=== PATIENT | female | born 1940 | race Caucasian/White ===

== ENCOUNTER 2017-01-19 21:38 | Emergency (ER) | payer OTHER ==
[~2017-01-19] VITALS: Ht 149.9 cm; Wt 49.9 kg
[2017-01-19] MEDS ORDERED: SODIUM CHLORIDE 0.9% 1,000 ML IV ONE (22:00)
[2017-01-19 22:23] LABS: Basophils # (auto) 0 uL; Basophils % (auto) 0.5 % (0.0-2.0); Eosinophils # (auto) 0.1 uL; Eosinophils % (auto) 1.1 % (0.0-7.0); Hematocrit 37.9 % (36.0-46.0); Hemoglobin 12.9 g/dL (12.2-16.2); Lymphocytes # (auto) 1.8 uL; Lymphocytes % (auto) 33.9 % (10.0-50.0); Mean Corpuscular Hemoglobin 32.9 pg (28.0-32.0); Mean Corpuscular Volume 96.6 fL (80.0-100.0); Mean Platelet Volume 8.4 fL (7.4-10.4); Monocytes # (auto) 0.3 uL; Monocytes % (auto) 6.1 % (0.0-12.0); Neutrophils # (auto) 3.2 uL; Neutrophils % (auto) 58.4 % (37.0-80.0); Platelet Count (auto) 279 10^3/uL (140-450); Red Cell Distribution Width 13.5 % (11.6-16.0); White Blood Cell 5.4 10^3/uL (4.4-10.8)
[2017-01-19 22:27] LABS: Urine RBC None Seen /hpf (0 - 4)
[2017-01-19 22:37] LABS: Urine Bilirubin Negative (Negative); Urine Blood Negative /uL (Negative); Urine Color Yellow (Yellow); Urine Glucose Normal (Normal); Urine Ketone Negative (Negative); Urine Nitrite Negative (Negative); Urine Squamous Epithelial Cell FEW /hpf (<5); Urine Urobilinogen Normal (Negative)
[2017-01-19 22:41] LABS: INR 0.95 (0.9-1.15); Partial Thromboplastin Time 27.6 sec (22.64-33.71); Prothrombin Time 10.3 sec (9.37-12.3)
[2017-01-19 22:46] LABS: Albumin 3.8 g/dL (3.4-5.0); Anion Gap 10 (5-15); Aspartate Aminotransferase 40 U/L (15-37); BUN/Creatinine Ratio 12.3; Blood Urea Nitrogen 9 mg/dL (7-18); Calcium 8.7 mg/dL (8.5-10.1); Carbon Dioxide 26 mmol/L (21-32); Chloride 94 mmol/L (98-107); GFR African American 100 mL/min; GFR Non-African American 83 mL/min; Glucose 85 mg/dL (74-106); Magnesium 2.2 mg/dL (1.6-2.6); Potassium 4.2 mmol/L (3.5-5.1); Sodium 130 mmol/L (136-145)
[2017-01-19 23:00] LABS: Alkaline Phosphatase 62 U/L (45-117); Bilirubin, Total 0.5 mg/dL (0.2-1.0); Total Protein 7.2 g/dL (6.4-8.2)
[2017-01-20 00:40] VITALS: BP 107/63
== END 2017-01-20 00:35 | disposition home or self-care (01) ==
LOC: ER 21:50
DX: F03.90 Unspecified dementia, unspecified severity, without behavioral disturbance, psychotic disturbance, mood disturbance, and anxiety (principal); F10.129 Alcohol abuse with intoxication, unspecified; Y90.9 Presence of alcohol in blood, level not specified; I10 Essential (primary) hypertension; R51 Headache; W18.11XA Fall from or off toilet without subsequent striking against object, initial encounter; Y93.89 Activity, other specified; Y99.8 Other external cause status; Y92.89 Other specified places as the place of occurrence of the external cause
CPT/HCPCS: 36415; 70450; 71010; 80053; 80307; 80320; 81001; 83605; 83735; 84484; 85025; 85610; 85730; 87086; 93005; 96360; 99285; J7030

== ENCOUNTER 2020-03-29 20:49 | Inpatient (IN) | payer OTHER ==
[~2020-03-29] VITALS: Ht 152.4 cm; Wt 47.3 kg
[2020-03-29] MEDS ORDERED: SODIUM CHLORIDE 0.9% 1,000 ML IV ONE ×2 (21:15→23:15)
[2020-03-29 22:20] LABS: Basophils # (auto) 0 10 ^3/uL (0-0.2); Basophils % (auto) 0.3 % (0.0-2.0); Eosinophils # (auto) 0.1 10 ^3/uL (0-0.8); Hematocrit 32.1 % (36.0-46.0); Hemoglobin 10.6 g/dL (12.2-16.2); Lymphocytes % (auto) 13.5 % (10.0-50.0); Mean Corpuscular Hemoglobin 30.2 pg (28.0-32.0); Mean Corpuscular Volume 91.7 fL (80.0-100.0); Monocytes # (auto) 0.7 10 ^3/uL (0-1.3); Monocytes % (auto) 10.3 % (0.0-12.0); Neutrophils # (auto) 5.4 10 ^3/uL (1.6-8.6); Neutrophils % (auto) 74.9 % (37.0-80.0); Platelet Count (auto) 164 10^3/uL (140-450); Red Cell Distribution Width 13.9 % (11.8-14.3); White Blood Cell 7.2 10^3/uL (4.4-10.8)
[2020-03-29 22:38] LABS: Albumin 2.9 g/dL (3.4-5.0); Anion Gap 5 (5-15); Blood Urea Nitrogen 46 mg/dL (7-18); Carbon Dioxide 22 mmol/L (21-32); Chloride 110 mmol/L (98-107); Glucose 78 mg/dL (74-106); Potassium 3.3 mmol/L (3.5-5.1); Sodium 137 mmol/L (136-145)
[2020-03-29 22:42] LABS: Alanine Aminotransferase 10 U/L (13-56); Alkaline Phosphatase 55 U/L (45-117); Aspartate Aminotransferase 13 U/L (15-37); BUN/Creatinine Ratio 18.5; Bilirubin, Total 0.4 mg/dL (0.2-1.0); GFR African American 24 mL/min; GFR Non-African American 20 mL/min; Total Protein 6.1 g/dL (6.4-8.2)
[2020-03-29 22:54] LABS: Urine Amorphous Crystal FEW /hpf (None Seen); Urine Bacteria FEW /hpf (None Seen); Urine Blood Negative /uL (Negative); Urine Hyaline Cast MOD /lpf (0 - 2); Urine Specific Gravity 1.009 (1.001-1.035); Urine WBC 2 /hpf (0 - 5)
[2020-03-29] MEDS ORDERED: cefTRIAXone 1GM/50ML D5W 50 ML IV ONE (23:15)
[2020-03-30] MEDS ORDERED: POTASSIUM CHL 20 Meq TABLET PO ONE (03:15)
[2020-03-30] MEDS ORDERED: metroNIDAZOLE 500MG/100ML 100 ML IV ONE (03:15)
[2020-03-30] MEDS ORDERED: DOCUSATE SOD 100 MG CAP PO PRN (04:45)
[2020-03-30] MEDS ORDERED: SODIUM CHLORIDE 0.9% 2,000 ML IV ONE (04:45)
[2020-03-30] MEDS ORDERED: ONDANSETRON HCL 4 MG/2 ML VIAL IV PRN (04:45)
[2020-03-30] MEDS ORDERED: ACETAMINOPHEN 325 MG TAB PO PRN (04:45)
[2020-03-30 05:23] LABS: Basophils # (auto) 0 10 ^3/uL (0-0.2); Eosinophils # (auto) 0.1 10 ^3/uL (0-0.8); Hematocrit 24.9 % (36.0-46.0); Hemoglobin 8.1 g/dL (12.2-16.2); Lymphocytes # (auto) 1.2 10 ^3/uL (0.4-5.4); Neutrophils # (auto) 3.2 10 ^3/uL (1.6-8.6)
[2020-03-30 05:25] LABS: Basophils % (auto) 0.2 % (0.0-2.0); Eosinophils % (auto) 1.3 % (0.0-7.0); Lymphocytes % (auto) 23.5 % (10.0-50.0); Mean Corpuscular Hemoglobin 30.1 pg (28.0-32.0); Mean Corpuscular Hgb Conc. 32.6 g/dL (32.0-36.0); Mean Corpuscular Volume 92.3 fL (80.0-100.0); Monocytes # (auto) 0.6 10 ^3/uL (0-1.3); Monocytes % (auto) 11.4 % (0.0-12.0); Neutrophils % (auto) 63.6 % (37.0-80.0); Nucleated Red Blood Cells % 0.1 %; Platelet Count (auto) 131 10^3/uL (140-450); Red Cell Distribution Width 13.6 % (11.8-14.3)
[2020-03-30] MEDS: metroNIDAZOLE 500MG/100ML 100 ML IV SCH ×3 (06:00→18:55)
[2020-03-30] MEDS: SODIUM CHLORIDE 0.9% 1,000 ML IV SCH ×2 (06:00→14:47)
[2020-03-30 06:02] VITALS: BP 112/61
--- NOTE | 2020-03-30 06:02 | NUR ---
MS admit from ER Patient admitted to Med Surg. Patient oriented to primary RN, unit, room, bed, and unit policies regarding patient care and visiting hours. Patient weighed by bedscale and encouraged to call if they need something. All questions and concerns addressed, patient verbalized understanding. Safety precautions in place bed is in lowest position and locked, bed rails 2x.
[2020-03-30 06:10] LABS: Anion Gap 5 (5-15); Blood Urea Nitrogen 27 mg/dL (7-18); Carbon Dioxide 15 mmol/L (21-32); Chloride 127 mmol/L (98-107); Glucose 71 mg/dL (74-106); Sodium 147 mmol/L (136-145)
[2020-03-30 06:13] LABS: BUN/Creatinine Ratio 24.3; Cholesterol 64 mg/dL (< 200); GFR African American 61 mL/min; GFR Non-African American 51 mL/min; HDL Cholesterol 20 mg/dL (40-59); LDL Cholesterol 40 mg/dL (< 100); Triglycerides 60 mg/dL (< 150)
[2020-03-30 06:31] LABS: Calcium < 5.0 mg/dL (8.5-10.1)
[2020-03-30 06:34] LABS: Potassium 2.3 mmol/L (3.5-5.1)
--- NOTE | 2020-03-30 06:40 | NUR ---
Critical Lab/ Paged Hospitalist Informed hospitalist of critical lab for Potassium and Calcium. New orders received to replace Potassium. Per hospitalist, Calcium is within normal range, no need for replacement. Will continue to monitor patient Q1 and PRN. Orders read back and verified.
[2020-03-30] MEDS: POTASSIUM CHL 20MEQ/100ML 100 ML IV SCH ×4 (07:00→16:30)
--- NOTE | 2020-03-30 07:15 | NUR ---
End of Shift Note Endorsed care to dayshift RN. Made RN aware of critical labs and new orders. At this time patient has no s/s of distress or SOB.
--- NOTE | 2020-03-30 07:45 | NUR ---
Opening Note Received report from shift production supervisor RN. Patient is awake. alert and oriented to name and date of only, at this time. Patient is on room air, respirations even and unlabored. Chung catheter in place, patent and draining. Bed in low and locked position, call light within reach. Bed alarm on for safety. Will continue to monitor Q1 hour and PRN.
--- NOTE | 2020-03-30 08:25 | NUR ---
Bedside commode Patient assisted to bedside commode. Patient had loose, very dark colored bowel movement. Patient cleaned and assisted back to bed. Bed alarm on for safety. Will continue to monitor Q1 hour and PRN.
[2020-03-30 09:00] VITALS: BP 105/55
--- NOTE | 2020-03-30 10:55 | NUR ---
Dr. Devorah Jara at bedside MD discussing plan of care with patient and this RN. New orders received. Will continue to monitor Q1 hour and PRN.
[2020-03-30] MEDS: cefTRIAXone 1GM/50ML D5W 50 ML IV SCH (14:42)
--- NOTE | 2020-03-30 14:42 | NUR ---
Chung catheter pulled out This RN found patient had pulled out Chung catheter. Patient states "I don't know what happened." Catheter tubing on bed, drainage bag on floor. Area assessed. Patient denies pain or discomfort at this time. Will insert new catheter. Will continue to monitor Q1 hour and PRN.
--- NOTE | 2020-03-30 14:45 | NUR ---
Sitter at bedside for safety
--- NOTE | 2020-03-30 16:20 | NUR ---
Dr. Gilberto Estrada at bedside Discussing plan of care with patient and this RN. New orders received. Will implement new orders and continue to monitor Q1 hour and PRN.
--- NOTE | 2020-03-30 16:25 | NUR ---
Stool sample collected and sent to lab
--- NOTE | 2020-03-30 16:30 | NUR ---
Unable to obtain Covid swab Unable to obtain Covid swab at this time, patient is agitated and refusing. Patient educated on reason for testing, patient continues to refuse. Will attempt again later. Will continue to monitor Q1 hour and PRN.
--- NOTE | 2020-03-30 18:59 | NUR ---
Closing Note Report given to casino shift manager RN. No signs or symptoms of distress noted at this time.
[2020-03-30 22:00] VITALS: BP 94/55
[2020-03-31] MEDS: SODIUM CHLORIDE 0.9% 1,000 ML IV SCH ×3 (00:45→20:45)
[2020-03-31 05:00] VITALS: BP 112/68
--- NOTE | 2020-03-31 05:10 | NUR ---
IV insertion IV access obtained, via clean sterile technique by inserting 22 gauge catheter at right forearm after 1 attempt. IV secured properly. No trauma to site. Patient tolerated procedure well. IV removal IV DC'd at left forearm, with sterile technique, catheter fully intact. Pressure dressing applied to site. Patient tolerated procedure well.
[2020-03-31] MEDS: metroNIDAZOLE 500MG/100ML 100 ML IV SCH ×4 (05:52→22:00)
--- NOTE | 2020-03-31 06:00 | NUR ---
COVID SWAB OBTAINED AND WALKED TO LAB. PATIENT TOLERATED WELL.
[2020-03-31 06:53] LABS: Calcium 7.2 mg/dL (8.5-10.1); Potassium 4.5 mmol/L (3.5-5.1)
[2020-03-31 06:57] LABS: BUN/Creatinine Ratio 14.5; Bilirubin, Total 0.4 mg/dL (0.2-1.0); Total Protein 6.2 g/dL (6.4-8.2)
--- NOTE | 2020-03-31 07:13 | NUR ---
End of Shift Note Endorsed care to dayshift RN. At this time patient has no s/s of distress or SOB.
--- NOTE | 2020-03-31 07:56 | NUR ---
Opening Shift Note Assumed care of patient, awake and alert. No S/S of distress/SOB or pain. Instructed on POC and to call for assist PRN, will continue to monitor for changes Q1hr and PRN.
--- NOTE | 2020-03-31 08:00 | NUR ---
large liquid loose bm noted
[2020-03-31 09:00] VITALS: BP 100/48
[2020-03-31] MEDS: cefTRIAXone 1GM/50ML D5W 50 ML IV SCH (09:21)
--- NOTE | 2020-03-31 09:39 | NUR ---
loose bm noted
--- NOTE | 2020-03-31 11:04 | NUR ---
md jose rounded on patient, updated that pt covid test was collected this am, pt asked if she can be "freed from this iv" iv fluids increased explained to pt fluids are necessary, pt wants to eat, per keep npo
--- NOTE | 2020-03-31 13:50 | NUR ---
loos bm noted
[2020-03-31 15:10] VITALS: BP 116/55
--- NOTE | 2020-03-31 16:22 | NUR ---
micro result called into nurse charge rn made aware of need for private room
--- NOTE | 2020-03-31 16:56 | NUR ---
made n jasbir aware of c diff result new orders made
--- NOTE | 2020-03-31 17:23 | NUR ---
pt moved to room 283 for isolation, noted pt pulled out peripheral iv, pt is refusing iv insertion at this time "leave me alone im cold and hungry" risk and benefit explained pt "leave me alone"
[2020-03-31] MEDS: VANCOMYCIN HCL 125MG/5ML ORAL SOL PO SCH ×2 (17:25→22:00)
--- NOTE | 2020-03-31 17:49 | NUR ---
pt provided dinner tray and hot coffee, asked to insert iv, per pt "im cold get out of here do that later"
--- NOTE | 2020-03-31 18:36 | NUR ---
attmepted x2 to place iv, pt "leave me alone thats enough"
--- NOTE | 2020-03-31 19:30 | NUR ---
Opening Shift Note Assumed care of patient, awake and alert, but confused. When this nurse attempts to re-orient her to place, pt agrees with RN; but then she speaks again of the dogs and cats still being out on the porch and of her son needing to come home and take care of them. Pt thinks people are "out sitting on the curb looking up into her windows. Pt's room is on 2nd floor of building. No S/S of resp. distress/SOB or pain. Instructed on POC and to call for assist PRN, will continue to monitor for changes Q1hr and PRN. Also sitter in room with pt 2/2 confusion and pt's dcing IV and attempting to dc F/C, though the latter was prevented. Currently pt has no IV access and does not want it.
--- NOTE | 2020-03-31 20:50 | NUR ---
Spoke with Babar Turner, pt's son who is the POA. Pt gave permission for her son to be Next of Kin. Spoke with Babar answering questions about his mom's current orientation status and that the reason for her room change was 2/2 C diff infection. Babar states he will be calling [facility] tomorrow to begin proceedings to have pt placed in facility as he has been caregiver in his home. Babar thanked this RN for answering questions and getting NOK established. Encouraged him to call as he needs.
[2020-03-31 22:00] VITALS: BP 134/57
--- NOTE | 2020-03-31 22:40 | NUR ---
Attempt to restart PIV to L post hand with 22 g cath unsuccessful. Attempt to start PIV to R post forearm unsuccessful. Pt tianna. activity well, but stating need to wait until in the morning and "we can start it while we have coffee." This RN requesting another RN to start and 'vein finder' was requested. Vein finder currently in Covid unit. Charge RNs aware and informed this RN that they will get it later and let this RN know when it is ready.
[2020-04-01 05:00] VITALS: BP_SYST 123; BP_SYST 130; BP_DIAS 61; BP_DIAS 63
[2020-04-01] MEDS: VANCOMYCIN HCL 125MG/5ML ORAL SOL PO SCH ×4 (06:00→21:35)
[2020-04-01] MEDS: metroNIDAZOLE 500MG/100ML 100 ML IV SCH ×3 (06:00→21:33)
[2020-04-01 06:24] LABS: Calcium 7.4 mg/dL (8.5-10.1); Potassium 3.8 mmol/L (3.5-5.1)
[2020-04-01 06:30] LABS: BUN/Creatinine Ratio 9.4; Bilirubin, Total 0.5 mg/dL (0.2-1.0); Total Protein 6.1 g/dL (6.4-8.2)
[2020-04-01] MEDS: SODIUM CHLORIDE 0.9% 1,000 ML IV SCH ×3 (06:45→21:36)
[2020-04-01 08:00] VITALS: BP 113/46
--- NOTE | 2020-04-01 08:00 | NUR ---
RECEIVED PATIENT ALERT AND ORIENTED X2, NOT IN DISTRESS, CLEAR LS IN BILATERAL LUNG LOBES, RR=18, DEEP BREATHING AND COUGHING ENCOURAGED, HEART R=78, DENIED CHEST PAIN AND SOB, ABDOMEN SOFT WITH ACTIVE BS, LAST BM THIS MORNING REPORTED, WILKS CATH IN PLACE AND PATENT, DRAINING CLEAR YELLOW URINE, SKIN INTACT WARM TO TOUCH, RADIAL AND PEDAL PULSES PALPABLE, DENIED PAIN, RESTING ON BED, HEAD OF BED ELEVATED, BED ON LOW POSITION, RAILS UP X2, CALL LIGHT ON REACH, SITTER AT BED SIDE, WILL CONTINUE MONITORING.
--- NOTE | 2020-04-01 08:30 | NUR ---
NO IV ACCESS, PROVIDED NEW IV ACCESS INSERTION, PATIENT REFUSED X2, DR. GUANAKO Fairchild WAS CALLED TO BE NOTIFIED, WAITING FOR CALL BACK, SITTER AT BED SIDE, WILL CONTINUE MONITORING.
--- NOTE | 2020-04-01 11:35 | NUR ---
PENDING VANCOMYCIN IV AT 1200 PM, NO IV ACCESS, DR. GUANAKO Fairchild NOTIFIED, PENDING MIDLINE INSERTION ORDERED, PICC LINE NURSE CONTACTED FOR FOLLOW UP INSERTION TIME, WILL CONTINUE MONITORING,
[2020-04-01 12:58] VITALS: BP 126/52
--- NOTE | 2020-04-01 14:39 | NUR ---
Pt is an alert to self female that has been residing at home with her son, Babar. Babar has been patient's primary caregiver for the last five years. Babar states pt was on service with hospice prior to admission. Pt had been on with [facility] but he'd changed to [facility] hospice due to [facility] only seeing the pt twice a week. He is wanting to resume service with [facility] upon discharge. Will followup with provider for a resumption order and contact [facility] regarding setting pt up to return home. Addendum: 04/01/20 at 1444 by ELKIN DIXON Amended: Links added.
--- NOTE | 2020-04-01 19:22 | NUR ---
REPORT WAS GIVEN TO THE TORCH STRAIGHTENER AND HEATER RN.
[2020-04-01 22:00] VITALS: BP 119/59
[2020-04-02 05:00] VITALS: BP 124/50
[2020-04-02] MEDS: metroNIDAZOLE 500MG/100ML 100 ML IV SCH ×3 (05:29→21:36)
[2020-04-02] MEDS: VANCOMYCIN HCL 125MG/5ML ORAL SOL PO SCH ×4 (05:30→21:36)
[2020-04-02 06:29] LABS: Albumin 2.7 g/dL (3.4-5.0); Calcium 7.7 mg/dL (8.5-10.1); Potassium 3.8 mmol/L (3.5-5.1)
[2020-04-02 06:34] LABS: BUN/Creatinine Ratio 8.2; Bilirubin, Total 0.4 mg/dL (0.2-1.0); Total Protein 5.7 g/dL (6.4-8.2)
--- NOTE | 2020-04-02 07:58 | NUR ---
RECEIVED PATIENT ALERT AND ORIENTED X1, NOT IN DISTRESS, CLEAR LS IN BILATERAL LUNG LOBES, RR=18, SAT=96%, DEEP BREATHING AND COUGHING ENCOURAGED, HEART R=64, DENIED CHEST PAIN AND SOB, ABDOMEN SOFT WITH ACTIVE BS, LAST BM THIS MORNING REPORTED, WILKS CATH IN PLACE AND PATENT, DRAINING CLEAR YELLOW URINE, SKIN INTACT WARM TO TOUCH, RADIAL AND PEDAL PULSES PALPABLE, DENIED PAIN, RESTING ON BED, HEAD OF BED ELEVATED, BED ON LOW POSITION, RAILS UP X2, CALL LIGHT ON REACH, SITTER AT BED SIDE, WILL CONTINUE MONITORING.
[2020-04-02 09:00] VITALS: BP 113/41
--- NOTE | 2020-04-02 12:10 | NUR ---
Nutrition Assessment Notes please see attached link fro complete assessment Est energy needs BW 47 [id number] kcal (25-30 kcal/kg BW), Est protein needs: 47-56g (1.0-1.2 g/kg BW). Will reassess prn. Addendum: 04/02/20 at [address] Amended: Links added.
[2020-04-02] MEDS: CHOLESTYRAMINE 4 GM POWDER GT SCH (12:18)
[2020-04-02] MEDS: SODIUM CHLORIDE 0.9% 1,000 ML IV SCH ×2 (12:19→22:45)
[2020-04-02 13:00] VITALS: BP 125/50
--- NOTE | 2020-04-02 18:21 | NUR ---
Sitting on bed and eating dinner, tolerating well, urine sample sent top the lab as ordered, sitter at bed side, will continue monitoring.
[2020-04-02 18:30] VITALS: BP 119/52
--- NOTE | 2020-04-02 19:25 | NUR ---
REPORT WAS GIVEN TO THE WOOD TYPE CUTTER RN.
[2020-04-03 05:00] VITALS: BP 115/52
[2020-04-03 05:11] VITALS: BP 124/53
[2020-04-03] MEDS: VANCOMYCIN HCL 125MG/5ML ORAL SOL PO SCH ×4 (06:00→21:52)
[2020-04-03] MEDS: SODIUM CHLORIDE 0.9% 1,000 ML IV SCH ×2 (06:00→18:45)
[2020-04-03] MEDS: metroNIDAZOLE 500MG/100ML 100 ML IV SCH ×3 (06:00→21:52)
--- NOTE | 2020-04-03 07:45 | NUR ---
Opening Note Received report from retail shift manager RN. Patient is resting in bed, no signs or symptoms of distress noted at this time. Patient is on room air, respirations even and unlabored. Patient denies pain at this time. Reviewed plan of care. Bed in low and locked position, call light within reach. Sitter at bedside for safety. Will continue to monitor Q1 hour and PRN.
[2020-04-03 09:00] VITALS: BP 125/52
[2020-04-03] MEDS: CHOLESTYRAMINE 4 GM POWDER GT SCH (10:41)
[2020-04-03 13:00] VITALS: BP 113/54
--- NOTE | 2020-04-03 16:00 | NUR ---
PT REQUESTED THAT P.T. EVALUATION BE DONE TOMORROW.
[2020-04-03 17:00] VITALS: BP 137/64
--- NOTE | 2020-04-03 19:02 | NUR ---
Closing Note Report given to electronic prepress technician RN. No signs or symptoms of distress noted at this time. Sitter at bedside for safety.
--- NOTE | 2020-04-03 19:53 | NUR ---
1899. REPORT OBTAINED ON PATIENT. 1929. PATIENT SEEN. AWAKE AND ALERT. LYING QUIET ON HER BED. CONFUSED BUT COOPERATIVE WITH CARE. SITTER AT THE BEDSIDE. ON CONTACT ISOLATION FOR C DIFF INFECTION. IV FLUID INFUSION. IV SITE CLEAR AND DRY.
[2020-04-03 22:00] VITALS: BP 120/61
[2020-04-03] MEDS ORDERED: TEMAZEPAM 15 MG CAP PO ONE (23:00)
--- NOTE | 2020-04-03 23:08 | NUR ---
2200. WILKS CATHETER DISCONTINUED. PATIENT VERBALIZE HER WISH TO VOID FREELY ON THE BEDSIDE COMMODE PROVIDED. SHE THREATENED TO PULL IT OUT ON HER OWN IF IT WAS NOT REMOVED. WE ARE CONVINCED THE WILKS CATHETER IS NO LONGER NEEDED. PATIENT IS EXPECTED TO VOID IN 6 HOURS. CATHETER WAS INTACT ON REMOVAL. REMOVAL WITNESS BY NURSE HADOOP SOFTWARE ENGINEER SITTER AT THE BEDSIDE.
--- NOTE | 2020-04-04 00:16 | NUR ---
PATIENT HAS VOIDED ONCE SINCE REMOVAL OF CATHETER. URINE WAS CLEAR.
--- NOTE | 2020-04-04 01:21 | NUR ---
PATIENT VOIDED AGAIN AND HAD BOWEL MOVEMENT. SHE WAS CLEANED. ALL LINENS CHANGED. PATIENT ASSISTED TO BED. DENIED PAIN.
[2020-04-04] MEDS: SODIUM CHLORIDE 0.9% 1,000 ML IV SCH ×2 (04:45→14:45)
[2020-04-04 05:00] VITALS: BP 111/55
[2020-04-04] MEDS: VANCOMYCIN HCL 125MG/5ML ORAL SOL PO SCH ×2 (05:44→12:49)
[2020-04-04] MEDS: metroNIDAZOLE 500MG/100ML 100 ML IV SCH ×2 (05:44→14:50)
[2020-04-04 08:57] VITALS: BP 147/68
--- NOTE | 2020-04-04 11:10 | NUR ---
HOSPITALIST ROUNDED Dr. Jara rounded on patient, he spoke with patient's son on phone regarding her discharge.
[2020-04-04] MEDS: CHOLESTYRAMINE 4 GM POWDER GT SCH (11:13)
[2020-04-04 13:00] VITALS: BP 145/75
[2020-04-04 14:26] VITALS: BP 145/75
--- NOTE | 2020-04-04 14:45 | NUR ---
Phone call to son Notified Babar of patient's discharge and that she will be picked up at 1530 by hospice.
--- NOTE | 2020-04-04 14:55 | NUR ---
Phone call Received phone call from patient's sister regarding discharge. She had questions regarding patient's diarrhea and her being discharge. Notify her that patient is on treatment for the infection and that MD spoke with son regarding unable to keep patient in hospital just because of diarrhea. She verbalized understanding.
--- NOTE | 2020-04-04 16:00 | NUR ---
Discharge instructions given as ordered. Encourage to follow up with PMD as instructed. All questions and concerns addressed. Patient verbalized understanding. Medication reconciliation form completed and copy given to patient. IV removed with catheter intact and pressure dressing applied. Patient taken to vehicle via gurney all personal belongings. No distress noted at time of departure.
== END 2020-04-04 16:00 | disposition hospice, home (50) | DRG 371 ==
LOC: EDBD 20:49 → ER 20:49 → WEST WING 20:50 → ER 03-30 05:52 → WEST WING 03-31 17:16
PROVIDERS: ADMIT Hospitalist; ATTEND Family Medicine
DX: A04.72 Enterocolitis due to Clostridium difficile, not specified as recurrent (principal); G93.41 Metabolic encephalopathy; K57.32 Diverticulitis of large intestine without perforation or abscess without bleeding; N17.9 Acute kidney failure, unspecified; N39.0 Urinary tract infection, site not specified; I95.9 Hypotension, unspecified; E86.0 Dehydration; F03.90 Unspecified dementia, unspecified severity, without behavioral disturbance, psychotic disturbance, mood disturbance, and anxiety; I10 Essential (primary) hypertension; E87.6 Hypokalemia; D64.9 Anemia, unspecified; Z82.49 Family history of ischemic heart disease and other diseases of the circulatory system; Z20.828 Contact with and (suspected) exposure to other viral communicable diseases
CPT/HCPCS: 36415; 71045; 74176; 80048; 80053; 80061; 81001; 82270; 83605; 83880; 84484; 85025; 85048; 87040; 87045; 87081; 87086; 87427; 87493; 93005; G0378; J0696; J3480; J3490